=== PATIENT | female | born 1965 | race Caucasian/White ===

== ENCOUNTER 2021-12-19 17:05 | Observation (INO) | payer MEDICARE, SELFPAY ==
[2021-12-19] VITALS (10 sets, daily range): BP systolic 45–175; BP diastolic 29–100; PULSE 60–109; RESP 18–22; TEMP 36.7; O2SAT 96–100; BMI 26.4; BMI 27.0
--- NOTE | 2021-12-19 17:13 | XR_ITS ---
PROCEDURE INFORMATION: Exam: XR Chest Exam date and time: 12/19/2021 5:28 PM Age: 56 years old Clinical indication: Cough TECHNIQUE: Imaging protocol: XR of the chest. Views: 1 view. COMPARISON: No relevant prior studies available. FINDINGS: Lungs: Unremarkable. No consolidation. Pleural spaces: Unremarkable. No pleural effusion. No pneumothorax. Heart/Mediastinum: Unremarkable. No cardiomegaly. Bones/joints: A left shoulder arthroplasty is present. IMPRESSION: No acute abnormality.
--- NOTE | 2021-12-19 17:13 | CT_ITS ---
PROCEDURE INFORMATION: Exam: CT Head Without Contrast Exam date and time: 12/19/2021 5:22 PM Age: 56 years old Clinical indication: Weakness, extremity; Left TECHNIQUE: Imaging protocol: Computed tomography of the head without contrast. Radiation optimization: All CT scans at this facility use at least one of these dose optimization techniques: automated exposure control; mA and/or kV adjustment per patient size (includes targeted exams where dose is matched to clinical indication); or iterative reconstruction. COMPARISON: No relevant prior studies available. FINDINGS: Brain: There is no acute intracranial hemorrhage, mass effect, or midline shift. There is decreased attenuation within the inferior left basal ganglia. This could represent an age-indeterminate area of ischemia. Mild advanced for age cerebral and cerebellar substance loss is noted. Cerebral ventricles: No hydrocephalus. Paranasal sinuses: There is no acute sinusitis. Mastoid air cells: The mastoid air cells are clear. Orbital cavities: The orbital structures are unremarkable. Bones/joints: No acute fracture. Soft tissues: Unremarkable. IMPRESSION: Age-indeterminate ischemic changes within the inferior left basal ganglia.An MRI is recommended if there is continued clinical concern for an acute stroke.
[2021-12-19 18:05] LABS: Basophils # 0.2 K/mm3 (0-0.2); Basophils % 1.6 % (0.1-2.0); Eosinophils % 0.4 % (0.1-12.0); Hematocrit 42.4 % (37.0-47.0); Hemoglobin 14.6 g/dL (12.2-16.2); Lymphocytes # 1.6 K/mm3 (0.7-4.5); Lymphocytes % 14.5 % (10-50); Mean Corpuscular HGB Conc 34.5 g/dL (31.8-35.4); Mean Corpuscular Hemoglobin 31.9 pg (27.0-31.2); Mean Corpuscular Volume 92.4 fl (81-99); Mean Platelet Volume 8.5 fl (7.4-10.4); Monocytes # 0.6 K/mm3 (0.1-1.0); Monocytes % 5.6 % (1.7-9.3); Neutrophils # 8.8 K/mm3 (1.8-7.8); Platelet Count 253 K/mm3 (142-424); Red Blood Count 4.59 M/mm3 (4.20-5.40); Red Cell Distribution Width 13.4 % (11.5-17.5); White Blood Count 11.3 K/mm3 (4.8-10.8)
[2021-12-19 18:12] LABS: Anion Gap 14.5 mEq/L (5-15); Carbon Dioxide 21 mmol/L (22.0-30.0); Chloride 108 mmol/L (98-107); Potassium 3.5 mmoL/L (3.5-5.1); Sodium 140 mmol/L (136-145)
[2021-12-19 18:13] LABS: Alanine Aminotransferase 50 U/L (12-78); Albumin Level 4.3 g/dl (3.5-5.0); Albumin/Globulin Ratio 1.5 (1.1-1.8); Alkaline Phosphatase 144 U/L (38-126); Aspartate Amino Transferase 38 U/L (14-36); Bilirubin,Total 0.6 mg/dl (0.2-1.3); Blood Urea Nitrogen 17 mg/dl (7-17); Calcium 9.8 mg/dl (8.4-10.2); Creatinine Clearance Estimated 78 mL/min (50-200); Estimated Glomerular Filt Rate 51 ml/min (>60); GFR (African American) 62 ML/MIN (>60); Globulin 2.8 g/dL (1.3-3.2); Glucose 100 mg/dl (74-100); Total Protein,Serum 7.1 g/dl (6.3-8.2)
--- NOTE | 2021-12-19 18:18 | HMH.EDANX ---
ED Disposition Clinical Impression: Acute anxiety, Paresthesia of left arm Hypertension Qualifiers: Hypertension type: primary hypertension Qualified Code(s): I10 - Essential (primary) hypertension Disposition: Admitted As Inpatient Condition on Discharge: Fair Referrals: Lanie Buchanan APRN [Primary Care Provider] - - Critical Care Critical Care Time: No Attestation: On , the high probability of a clinically significant, sudden or life threatening deterioration of the following system(s) required my full and direct attention, intervention and personal management. The time I documented below is in addition to time spent performing reported procedures but includes the following listed in this critical care notation. Medical Decision Making - Medical Records Medical records reviewed: Yes: I reviewed the patient's medical records. - Chuy Inquiry Pt receiving controlled substance: No Vital Signs: 12/19/21 17:08 12/19/21 18:03 Temperature 98.0 F Temperature Source Oral Pulse Rate 107 H Pulse Rate [Left Radial] 101 H Respiratory Rate 20 20 Blood Pressure 45/29 L Blood Pressure [Right Arm] 145/100 H Blood Pressure Mean 32 Blood Pressure Mean [Right Arm] 115 02 Sat by Pulse Oximetry 98 99 Oxygen Delivery Method Room Air - Lab Data Lab Results 12/19/21 17:51: WBC 11.3 H, RBC 4.59, Hgb 14.6, Hct 42.4, MCV 92.4, MCH 31.9 H, MCHC 34.5, RDW 13.4, Plt Count 253, MPV 8.5, Neut % (Auto) 78.0, Lymph % (Auto) 14.5, [place] % (Auto) 5.6, Eos % (Auto) 0.4, Baso % (Auto) 1.6, Neut # (Auto) 8.8 H, Lymph # (Auto) 1.6, [place] # (Auto) 0.6, Eos # (Auto) 0.0, Baso # (Auto) 0.2 12/19/21 17:51: Sodium 140, Potassium 3.5, Chloride 108 H, Carbon Dioxide 21 L, Anion Gap 14.5, BUN 17, Creatinine 1.10 H, Estimated Creat Clear 78, Estimated GFR 51 L, Est GFR ( Amer) 62, Glucose 100, Calcium 9.8, Total Bilirubin 0.6, AST 38 H, ALT 50, Alkaline Phosphatase 144 H, Troponin I < 0.01, Total Protein 7.1, Albumin 4.3, Globulin 2.8, Albumin/Globulin Ratio 1.5 Result diagrams: 12/19/21 17:51 12/19/21 17:51 Orders (Tests/Meds): ED MEDICATIONS Generic Name Dose Route Start Last Admin Trade Name Freq PRN Reason Stop Dose Admin Sodium Chloride 1,000 mls @ 999 mls/hr 12/19/21 17:15 12/19/21 17:54 Sod Chlor 0.9% 1000ml Bag IV 12/19/21 18:15 999 mls/hr .Q1H1M DANNY Administration Sodium Chloride 10 ml 12/19/21 17:13 Sodium Chloride 0.9% 10ml Vial IV 01/18/22 17:12 NEEDED PRN to Dilute Lorazepam inj Discontinued Medications Generic Name Dose Route Start Last Admin Trade Name Freq PRN Reason Stop Dose Admin Aspirin 325 mg 12/19/21 18:54 12/19/21 19:27 Aspirin 325mg Tablet PO 12/19/21 18:55 325 mg ONCE ONE Administration Lorazepam 1 mg 12/19/21 17:13 12/19/21 17:54 Lorazepam 2mg/Ml Vial IV 12/19/21 17:14 Not Given ONCE ONE ORDERS Category Date Time Status Troponin I Q3H Lab 12/19/21 20:15 Ordered Troponin I Q3H Lab 12/19/21 23:15 Ordered - Radiology Data #1 Image(s): Chest Image Reviewed: Yes I reviewed the patient's radiology results, Yes I reviewed the patient's radiology image, Yes I have reviewed radiologist's interpretation Preliminary Findings: Normal/NAD - CT Data CT Scan: Head Time Received: 19:[address] Reviewed: Yes: I have reviewed the patient's CT results, I have viewed the radiologist's interpretation Findings Narrative: IMPRESSION: Age-indeterminate ischemic changes within the inferior left basal ganglia.An MRI is recommended if there is continued clinical concern for an acute stroke. - ECG Data Tracing #1 I reviewed this ECG and interpreted as documented below: Normal ventricular rate of 86 bpm, IA interval 164 ms, normal QTC. Sinus rhythm with occasional PVC. ECG initial impression date: 12/19/21 ECG initial impression time: 18:40 - Reevaluation(s) Time: 19:54 Reevaluation #1: On reevaluation, t
[2021-12-19 18:27] LABS: Troponin I < 0.01 ng/ml (0.00-0.034)
--- NOTE | 2021-12-19 18:40 | ECG_ITS ---
APPROVED REPORT Exam: Resting ECG HR:86 bpm ECG Measurements Heart Rate 86 AXES ME 164 P 42 QRSd 93 QRS 21 QT 373 T 25 QTc 416 Conclusion SINUS RHYTHM WITH OCCASIONAL ECTOPIC PREMATURE COMPLEXES POSSIBLE LEFT ATRIAL ENLARGEMENT [-0.1mV P-WAVE IN V1/V2] BORDERLINE ECG UNCONFIRMED REPORT Electronically signed by : Weston Luu MD 12/20/2021 21:10:20
--- NOTE | 2021-12-19 19:13 | PC.NURSE ---
Dr. Bell em for ED doctor
--- NOTE | 2021-12-19 19:36 | PC.NURSE ---
Dr Luu paged again
--- NOTE | 2021-12-19 19:50 | PC.NURSE ---
ED doctor on phone with Dr. Luu
--- NOTE | 2021-12-19 19:52 | PC.NURSE ---
patient being admitted
[2021-12-19 20:04] LABS: Coronavirus 19, PCR Not Detected (NotDetected); Influenza A, PCR Not Detected (NotDetected); Influenza B, PCR Not Detected (NotDetected)
--- NOTE | 2021-12-19 20:09 | PC.NURSE ---
Tried to call report to [facility], Nurse unavailable to take report at this time.
--- NOTE | 2021-12-19 21:13 | PC.NURSE ---
pt arrived to the floor via wheelchair at this time.
[2021-12-19 21:38] LABS: Troponin I < 0.01 ng/ml (0.00-0.034)
[2021-12-20] VITALS: BP 108/61; PULSE 70; PULSE 73; RESP 20; TEMP 36.6; O2SAT 96
[2021-12-20 00:03] LABS: Troponin I < 0.01 ng/ml (0.00-0.034)
[2021-12-20 04:00] VITALS: PULSE 80
--- NOTE | 2021-12-20 04:00 | PC.NURSE ---
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
[2021-12-20 04:52] VITALS: BP 119/67; PULSE 70; RESP 20; TEMP 36.8; O2SAT 98
[2021-12-20 06:27] LABS: Basophils # 0.1 K/mm3 (0-0.2); Basophils % 1.6 % (0.1-2.0); Eosinophils # 0.2 K/mm3 (0.0-0.4); Hematocrit 42.5 % (37.0-47.0); Hemoglobin 14.4 g/dL (12.2-16.2); Lymphocytes % 23.9 % (10-50); Mean Corpuscular HGB Conc 33.9 g/dL (31.8-35.4); Mean Corpuscular Hemoglobin 31.4 pg (27.0-31.2); Mean Corpuscular Volume 92.9 fl (81-99); Mean Platelet Volume 8.4 fl (7.4-10.4); Monocytes # 0.6 K/mm3 (0.1-1.0); Monocytes % 7.8 % (1.7-9.3); Neutrophils # 5.3 K/mm3 (1.8-7.8); Neutrophils % 64.7 % (37.0-80.0); Platelet Count 238 K/mm3 (142-424); Red Blood Count 4.58 M/mm3 (4.20-5.40); Red Cell Distribution Width 13.4 % (11.5-17.5); White Blood Count 8.2 K/mm3 (4.8-10.8)
[2021-12-20 06:38] LABS: Anion Gap 11.8 mEq/L (5-15); Blood Urea Nitrogen 15 mg/dl (7-17); Calcium 9.2 mg/dl (8.4-10.2); Carbon Dioxide 25 mmol/L (22.0-30.0); Chloride 108 mmol/L (98-107); Creatinine Clearance Estimated 87 mL/min (50-200); Estimated Glomerular Filt Rate 57 ml/min (>60); GFR (African American) 69 ML/MIN (>60); Glucose 94 mg/dl (74-100); Potassium 3.8 mmoL/L (3.5-5.1); Sodium 141 mmol/L (136-145)
--- NOTE | 2021-12-20 07:19 | HMH.PHAVTE ---
[facility] Pharmacy VTE Monitoring - Patient Demographics Admission date: 12/20/21 Report Date: 12/20/21 Time: 07:19 Allergies/Adverse Reactions: Patient Allergies cephalexin [From Keflex] Allergy (Verified 12/19/21 21:44) prochlorperazine [From Compazine] Allergy (Verified 12/19/21 21:44) latex Adverse Reaction (Verified 12/19/21 21:44) Penicillins Adverse Reaction (Verified 12/19/21 21:44) Height: 1.8 m Weight: 87.498 kg Patient Problems: Current Active Problems Acute anxiety (Acute) Hypertension (Acute) Paresthesia of left arm (Acute) - VTE Risk Labs: VTE Related Lab Results Hgb 14.4 g/dL (12.2-16.2) 12/20/21 05:57 Hct 42.5 % (37.0-47.0) 12/20/21 05:57 Plt Count 238 K/mm3 (142-424) 12/20/21 05:57 BUN 15 mg/dl (7-17) 12/20/21 05:57 Creatinine 1.00 mg/dl (0.52-1.04) 12/20/21 05:57 Estimated Creat Clear 87 mL/min (50-200) 12/20/21 05:57 Was VTE Risk Assessment Performed: Yes VTE Score: 2 VTE Risk Level: Very Low Risk Clinical Trial Participant: No - Prophylaxis VTE Prophylaxis Ordered?: Yes Types of VTE Prophylaxis: TEDS Knee High, Pharmacological Pharmacologic Type: Enoxaparin
--- NOTE | 2021-12-20 07:23 | HMH.PHAINT ---
HOME MEDICATION LIST VERIFIED USING LIST FROM OUTPATIENT PHARMACY
[2021-12-20 08:00] VITALS: BP 155/75; PULSE 120; PULSE 78; RESP 18; TEMP 36.3; O2SAT 97; O2SAT 98
--- NOTE | 2021-12-20 09:59 | MR_ITS ---
FINAL REPORT CLINICAL HISTORY: LEFT WEAKNESS, hx of tia FINDINGS: Multiplanar MR imaging of the brain was performed without contrast. There is mild age-appropriate atrophy. There is no evidence of intracranial hemorrhage or mass. No abnormal ventricular dilatation is identified. No abnormal extra-axial fluid collection is seen. No abnormality is seen on the diffusion weighted images. The posterior fossa and brainstem are unremarkable. Normal major vessel vascular flow voids are seen. IMPRESSION: Age-appropriate atrophy. No acute intracranial abnormality. Reviewed, Interpreted and Dictated by Maykel Gupta III, MD Transcribed by Dameon Conner Authenticated by Maykel Gupta III, MD on 12/20/2021 12:00:27 PM [facility]
--- NOTE | 2021-12-20 12:10 | HMH.HPDC ---
General - General Admission date:: 12/19/21 Discharge date: 12/20/21 *Admission Date: 12/19/21 *Chief complaint: Left arm paresthesias/left hemiplegia *History of present illness: 56-year-old white female with history of dysthymia, recurrent/intermittent atrial fibrillation and statin intolerance who is on Repatha for hyperlipidemia, who presented to the emergency department on 12/19/2021 with feelings of left arm paresthesia and left hemiplegia and some weakness. In the ER work-up showed slightly elevated blood pressure, and a suspicious appearing CT scan with possible semiacute/acute changes in the basal ganglia. [facility] stroke hotline was called but they did not accept the patient in transfer should she did not admit criteria for intervention or tPA. She was admitted to hospital overnight for further evaluation and MRI scanning this morning. When I entered the room this morning to make rounds the patient was extremely irritated, and stated nothing has been done for me all night. She was under the impression that she should have received tPA or some type of blood thinner. We discussed criteria for this and discussed further efforts that we could make it secondary/primary stroke prevention once MRI scan was back. Interestingly, she is not on anticoagulation therapy even though she has a strong history of paroxysmal A. fib. She follows with cardiology at [facility] in [place]. Is unable to take statins because they make me feel funny. She does take Repatha injections every other week. [facility] History I have reviewed the patient's past medical history: Yes Medical History: Reports:: Atrial Fibrillation Denies:: Cancer, Diabetes Mellitus Type 1, Diabetes Mellitus Type 2, MRSA *Have you ever received a pneumonia vaccine?: No *Have you received a flu vaccine this season?: No Other Medical History: Reports: Arthritis, Hypothyroidism Laterality Cases: Left: Arthroscopy Shoulder Other Surgeries: Yes: Appendectomy, Cholecystectomy, Amputation: No Fractures: No - *Social History Smoking Status: Never smoker Alcohol Intake: former *Occupational Status:: disabled Housing: house Household Members: spouse, children *Travel in the last 8 weeks: None Family Hx:: Cancer Review of Systems - Review of Systems Review of systems:: pertinent systems reviewed and negative unless documented below No feelings of palpitations. Reports that overnight her feelings of paresthesia and leg weakness have improved. - *Neurologic Denies headache(s) Exam Vital signs and Labs for Last 24 Hours: Temp Pulse Resp BP Pulse Ox 97.4 F L 78 18 155/75 H 97 12/20/21 08:00 12/20/21 08:00 12/20/21 08:00 12/20/21 08:00 12/20/21 08:00 Laboratory Results - last 24 hr 12/19/21 17:51: WBC 11.3 H, RBC 4.59, Hgb 14.6, Hct 42.4, MCV 92.4, MCH 31.9 H, MCHC 34.5, RDW 13.4, Plt Count 253, MPV 8.5, Neut % (Auto) 78.0, Lymph % (Auto) 14.5, [place] % (Auto) 5.6, Eos % (Auto) 0.4, Baso % (Auto) 1.6, Neut # (Auto) 8.8 H, Lymph # (Auto) 1.6, [place] # (Auto) 0.6, Eos # (Auto) 0.0, Baso # (Auto) 0.2 12/19/21 17:51: Sodium 140, Potassium 3.5, Chloride 108 H, Carbon Dioxide 21 L, Anion Gap 14.5, BUN 17, Creatinine 1.10 H, Estimated Creat Clear 78, Estimated GFR 51 L, Est GFR ( Amer) 62, Glucose 100, Calcium 9.8, Total Bilirubin 0.6, AST 38 H, ALT 50, Alkaline Phosphatase 144 H, Troponin I < 0.01, Total Protein 7.1, Albumin 4.3, Globulin 2.8, Albumin/Globulin Ratio 1.5 12/19/21 20:02: SARS-CoV-2 (PCR) Not detected, Influenza A Untype (PCR) Not detected, Influenza Type B (PCR) Not detected 12/19/21 20:56: Troponin I < 0.01 12/19/21 23:03: Troponin I < 0.01 12/20/21 05:57: WBC 8.2 D, RBC 4.58, Hgb 14.4, Hct 42.5, MCV 92.9, MCH 31.4 H, MCHC 33.9, RDW 13.4, Plt Count 238, MPV 8.4, Neut % (Auto) 64.7, Lymph % (Auto) 23.9, [place] % (Auto) 7.8, Eos % (Auto) 2.0, Baso % (Auto) 1.6, Neut # (Auto) 5.3, Lymph # (Auto) 2.0, [place] # (Auto) 0.6, Eos
--- NOTE | 2021-12-21 12:27 | CARE MANAGER ---
Contacted patient related to follow up from hospital discharge. Patient states that she is still having some chest pain but is wearing her holter monitor and the pain hasn't changed. She denies any questions or concerns.
== END 2021-12-20 13:45 | disposition home or self-care (01) ==
LOC: ER 19:55 → 2ND 20:01
PROVIDERS: Admitting Provider Internal Medicine Adolescent Medicine; Emergency Provider Emergency Medicine; PCP Nurse Practitioner; Visit Provider Internal Medicine Adolescent Medicine
DX: I48.0 Paroxysmal atrial fibrillation (principal); R20.2 Paresthesia of skin; Z20.822 Contact with and (suspected) exposure to COVID-19; Z28.310 Unvaccinated for COVID-19; E78.5 Hyperlipidemia, unspecified; Z79.899 Other long term (current) drug therapy; Z88.8 Allergy status to other drugs, medicaments and biological substances
CPT/HCPCS: G0378; 36415; 70450; 70551; 71045; 80048; 80053; 84484; 85025; 93005; 93270; 99285; C9803; U0003; U0005

== ENCOUNTER 2024-02-13 10:27 | Emergency (ER) | payer MEDICARE, SELFPAY ==
[2024-02-13] VITALS (11 sets, daily range): BP systolic 99–141; BP diastolic 55–90; PULSE 60–82; RESP 7–18; TEMP 36.4–36.8; O2SAT 95–98; BMI 28.5
--- NOTE | 2024-02-13 10:26 | ECG_ITS ---
APPROVED REPORT Exam: Resting ECG HR:74 bpm ECG Measurements Heart Rate 74 AXES ID 161 P 51 QRSd 87 QRS 27 QT 354 T 23 QTc 381 Conclusion SINUS RHYTHM WITH OCCASIONAL VENTRICULAR PREMATURE COMPLEXES BORDERLINE ECG UNCONFIRMED REPORT Electronically signed by : James Velazquez, 02/13/2024 15:48:33
--- NOTE | 2024-02-13 11:04 | XR_ITS ---
FINAL REPORT CLINICAL HISTORY: dyspnea COMPARISON: 12/19/2021 FINDINGS: SINGLE-VIEW CHEST The heart size is normal. The mediastinum is normal. The lungs are clear. There is no pneumothorax. The patient is status post left shoulder arthroplasty. IMPRESSION: No acute cardiopulmonary process. Reviewed, Interpreted and Dictated by Maykel Gupta III, MD Transcribed by Love Parks Authenticated and [facility]
--- NOTE | 2024-02-13 11:06 | ED_ITS ---
Discharge Plan Disposition Patient Disposition: Home, Self-Care Prescriptions Prescriptions: No Action tizanidine 4 MG tablet 4 mg PO HS PRN (Reason: restless leg syndrome) levothyroxine 88 MCG tablet 88 mcg PO DIRECTED Rx Instructions: take 1 tab (88mcg) at bedtime, take 2 tabs (176mcg) on Mondays at bedtime lorazepam 0.5 MG tablet 1 - 2 mg PO HS aspirin 81 MG tablet,chewable 81 mg PO DAILY folic acid 1 MG tablet 1 mg PO HS evolocumab 420 MG/3.5 ML wearable injector 1 dose SQ MONTHLY lisinopril 5 MG tablet 5 mg PO DAILY Qty: 30 0RF Referrals Follow up/Referrals: Provider,Referral, MD [Referring] - See instructions Activity Restrictions/Add. Instructions Additional Instructions/Restrictions: No acute cardiopulmonary emergency identified please follow-up with your french instructor next available appointment to discuss further downstream noninvasive cardiac imaging and/or stress test/heart cath. Return with any significant worsening of your symptoms. Clinical Impressions Clinical Impression: Chest pain, Acute dyspnea Discharge ED Provider: Kalina Velazquez General Adult HPI General Chief complaint: Chest Pain Stated complaint: chest pain Time Seen by Provider: 02/13/24 10:57 Mode of Arrival: Ambulatory Source of Information: Patient Limitations: No Limitations Description of Symptoms (Recalled from ER Triage Doc. by RN): Patient reports chest pain and SOB that started approx 3 days ago. Reports radiation down left arm and up to left jaw. States she spoke with her french instructor at [facility] who referred her to the emergency room. History of Present Illness HPI narrative: Patient is a 59-year-old presenting today with chest pain and dyspnea. This started 3 days ago she states has been intermittent. She states its located substernal with some radiation and diaphoresis associated with it. She spoke with her french instructor who is at [facility] who sent her to the emergency department for further evaluation. She states she is currently without any symptoms most recent episode lasted about 30 minutes. She denies any underlying coronary artery disease. She has had a stress test in the past which was unremarkable. She has not had a left heart cath. She does have a known history of atrial fibrillation she is on Eliquis for this and has been compliant with those medications. No diagnosed of pulmonary pathology in the past. No recent lower extremity swelling hemoptysis history of DVT PE etc. Related Data Home Medications Medication Instructions Recorded Confirmed aspirin 81 mg chewable tablet 81 mg PO DAILY heart health 12/19/21 12/19/21 evolocumab 420 mg/3.5 mL 1 dose SQ MONTHLY Cholesterol 12/19/21 12/19/21 subcutaneous wearable injector folic acid 1 mg tablet 1 mg PO HS Supplement 12/19/21 12/19/21 levothyroxine 88 mcg tablet 88 mcg PO DIRECTED 12/19/21 12/20/21 hypothyroidism lorazepam 0.5 mg tablet 1 - 2 mg PO HS sleep 12/19/21 12/19/21 tizanidine 4 mg tablet 4 mg PO HS PRN restless leg 12/19/21 12/19/21 syndrome Previous Rx's Medication Instructions Recorded lisinopril 5 mg tablet 5 mg PO DAILY #30 tabs 12/20/21 Allergies Allergy/AdvReac Type Severity Reaction Status Date / Time cephalexin [From Keflex] Allergy Verified 12/19/21 21:44 coffee (Coffea arabica) Allergy Verified 12/20/21 07:46 prochlorperazine Allergy Verified 12/19/21 21:44 [From Compazine] latex AdvReac Verified 12/19/21 21:44 Penicillins AdvReac Verified 12/19/21 21:44 ALL FRUIT Allergy Uncoded 12/20/21 07:49 [facility] Disclaimer: The information contained in this section may have been updated after the patient was seen, as this information can be updated by other users. Social History Smoking Status: Unknown if ever smoked alcohol intake: former current occupational status: disabled Travel in the last 8 weeks: None household members: spouse and children housing: house ROS Obtained: Yes All systems reviewed & no additional complaints except as documented Physical Exam General General appearance: alert and in no apparent distress Respiratory Respiratory exam: Present normal lung sounds bilaterally and respiratory distress Cardiovascular Cardiovascular exam: Present regular rate and normal rhythm Neurological Exam Neurological exam: Present alert and oriented X3 Medical Decision Making Chuy Inquiry Pt receiving controlled substance: No Vital Signs: 02/13/24 10:27 02/13/24 10:31 02/13/24 11:01 Temperature 97.6 F Temperature Source Oral Pulse Rate 79 74 Pulse Rate [Radial] 82 Respiratory Rate 17 16 15 Blood Pressure 121/90 Blood Pressure [Right Arm] 141/86 H Blood Pressure Mean [Right Arm] 104 Blood Pressure Source [Right Arm] Automatic Cuff Blood Pressure Position [Right Arm] Sitting 02 Sat by Pulse Oximetry 98 98 98 Oxygen Delivery Method Room Air Room Air 02/13/24 11:30 02/13/24 12:01 02/13/24 12:31 Temperature Temperature Source Pulse Rate 73 71 78 Pulse Rate [Radial] Respiratory Rate 16 7 L 7 L Blood Pressure 125/81 111/55 L 99/55 L Blood Pressure [Right Arm] Blood Pressure Mean [Right Arm] Blood Pressure Source [Right Arm] Blood Pressure Position [Right Arm] 02 Sat by Pulse Oximetry 97 96 96 Oxygen Delivery Method Room Air Room Air Room Air 02/13/24 13:00 02/13/24 13:30 02/13/24 14:00 Temperature Temperature Source Pulse Rate 69 64 Pulse Rate [Radial] Respiratory Rate 8 L 13 11 L Blood Pressure 119/79 117/80 103/77 L Blood Pressure [Right Arm] Blood Pressure Mean [Right Arm] Blood Pressure Source [Right Arm] Blood Pressure Position [Right Arm] 02 Sat by Pulse Oximetry 96 97 98 Oxygen Delivery Method Room Air Room Air Room Air 02/13/24 14:30 Temperature Temperature Source Pulse Rate 62 Pulse Rate [Radial] Respiratory Rate 12 Blood Pressure 114/73 Blood Pressure [Right Arm] Blood Pressure Mean [Right Arm] Blood Pressure Source [Right Arm] Blood Pressure Position [Right Arm] 02 Sat by Pulse Oximetry 95 Oxygen Delivery Method Lab Data Lab results reviewed: Yes I reviewed the patient's lab results. Lab Results 02/13/24 10:35: WBC 7.8, RBC 4.77, Hgb 15.2, Hct 44.1, MCV 92.6, MCH 31.8 H, MCHC 34.3, RDW 13.6, Plt Count 250, MPV 8.6, Neut % (Auto) 64.2, Lymph % (Auto) 25.4, [place] % (Auto) 7.7, Eos % (Auto) 2.0, Baso % (Auto) 0.7, Neut # (Auto) 5.0, Lymph # (Auto) 2.0, [place] # (Auto) 0.6, Eos # (Auto) 0.2, Baso # (Auto) 0.1, D- Dimer 0.50, Sodium 138, Potassium 3.9, Chloride 105, Carbon Dioxide 23, Anion Gap 13.9, BUN 14, Creatinine 1.10 H, Estimated Creat Clear 78, Estimated GFR 51 L, Est GFR ( Amer) 62, Glucose 92, Calcium 9.7, Total Bilirubin 0.6, AST 57 H, ALT 55, Alkaline Phosphatase 138 H, Troponin I < 0.01, NT-Pro-B Natriuret Pep 55.0, Total Protein 7.8, Albumin 4.6, Globulin 3.2, Albumin/Globulin Ratio 1.4 02/13/24 13:10: Troponin I < 0.01 02/13/24 10:35 02/13/24 10:35 Orders (Tests/Meds): ED MEDICATIONS Discontinued Medications Generic Name Dose Route Start Last Admin Trade Name Freq PRN Reason Stop Dose Admin Aspirin 324 mg 02/13/24 11:04 02/13/24 11:12 Aspirin 81mg Chewable Tablet PO 02/13/24 11:05 324 mg ONCE ONE Administration ORDERS Category Date Time Status CXR --portable [XR chest portable] Stat Exams 02/13/24 11:04 Taken BNP [NT Pro Brain Natriuretic Pep.] Stat Lab 02/13/24 10:35 Completed CBC w/Auto Diff [Complete Blood Count Auto Diff] Stat Lab 02/13/24 10:35 Completed CMP [Comprehensive Metabolic Panel] Stat Lab 02/13/24 10:35 Completed D-Dimer Stat Lab 02/13/24 10:35 Completed Trop I [Troponin I] Stat Lab 02/13/24 10:35 Completed Troponin I Q3H Lab 02/13/24 13:10 Completed Troponin I Q3H Lab 02/13/24 17:15 Ordered ECG Data Tracing #1: I reviewed this ECG and interpreted as documented below: Ventricular rate of 74 no acute ischemic changes noted there is a normal axis this is sinus rhythm no significant conduction abnormalities there is a single PVC HEART Score History (anamnesis): Moderately suspicious ECG: Normal Age: 45-65 years Risk factors: 1-2 risk factors Medical Decision Narrative: 59-year-old female presents today with intermittent chest pain and shortness of breath. She is very well-appearing on my initial assessment EKG is nonischemic. Will get blood work including serial troponins D-dimer to rule out PE I will utilize years criteria of 1.[address] PE. Other pathology would include pneumonia COPD pulmonary embolism CHF etc. Reassessment but after initial workup is complete. Reassessment 248 patient remains very stable serial troponins are negative chest x-ray performed to person interpreted patient was observed for several hours without any evidence of cardiopulmonary emergency. D-dimer beneath CT PE threshold. Not consistent with pulmonary embolism. Serial EKGs were performed without any progressive ischemia. She has close follow-up with her french instructor she was offered close follow-up with our french instructor declined. She was discharged in improved and stable condition. Critical Care Critical Care Time Critical Care Time: No
[2024-02-13] MEDS: ASPIRIN 81MG CHEWABLE TABLET 324 MG PO (11:12)
[2024-02-13 11:23] LABS: Alanine Aminotransferase 55 U/L (12-78); Albumin Level 4.6 g/dl (3.5-5.0); Albumin/Globulin Ratio 1.4 (1.1-1.8); Alkaline Phosphatase 138 U/L (38-126); Anion Gap 13.9 mEq/L (5-15); Aspartate Amino Transferase 57 U/L (14-36); Basophils # 0.1 K/mm3 (0-0.2); Basophils % 0.7 % (0.1-2.0); Bilirubin,Total 0.6 mg/dl (0.2-1.3); Blood Urea Nitrogen 14 mg/dl (7-17); Calcium 9.7 mg/dl (8.4-10.2); Carbon Dioxide 23 mmol/L (22.0-30.0); Chloride 105 mmol/L (98-107); Creatinine Clearance Estimated 78 mL/min (50-200); Eosinophils # 0.2 K/mm3 (0.0-0.4); Estimated Glomerular Filt Rate 51 ml/min (>60); GFR (African American) 62 ML/MIN (>60); Globulin 3.2 g/dL (1.3-3.2); Glucose 92 mg/dl (74-100); Hematocrit 44.1 % (37.0-47.0); Hemoglobin 15.2 g/dL (12.2-16.2); Lymphocytes % 25.4 % (10-50); Mean Corpuscular HGB Conc 34.3 g/dL (31.8-35.4); Mean Corpuscular Hemoglobin 31.8 pg (27.0-31.2); Mean Corpuscular Volume 92.6 fl (81-99); Mean Platelet Volume 8.6 fl (7.4-10.4); Monocytes # 0.6 K/mm3 (0.1-1.0); Monocytes % 7.7 % (1.7-9.3); Neutrophils % 64.2 % (37.0-80.0); Platelet Count 250 K/mm3 (142-424); Potassium 3.9 mmoL/L (3.5-5.1); Red Blood Count 4.77 M/mm3 (4.20-5.40); Red Cell Distribution Width 13.6 % (11.5-17.5); Sodium 138 mmol/L (136-145); Total Protein,Serum 7.8 g/dl (6.3-8.2); White Blood Count 7.8 K/mm3 (4.8-10.8)
[2024-02-13 11:43] LABS: Troponin I < 0.01 ng/ml (0.00-0.034)
--- NOTE | 2024-02-13 12:08 | PC.NURSE ---
Rounded on pt. Pt complains of chest pain on and off Dr. Velazquez made aware.
--- NOTE | 2024-02-13 13:07 | ECG_ITS ---
APPROVED REPORT Exam: Resting ECG HR:61 bpm ECG Measurements Heart Rate 61 AXES ID 164 P 63 QRSd 87 QRS 45 QT 410 T 38 QTc 414 Conclusion SINUS RHYTHM WITH OCCASIONAL VENTRICULAR PREMATURE COMPLEXES BORDERLINE ECG UNCONFIRMED REPORT Electronically signed by : James Velazquez, 02/13/2024 15:49:00
--- NOTE | 2024-02-13 13:11 | PC.NURSE ---
Repeat EKG performed and second trop sent to lab. No other needs voiced. Call light remains within reach.
[2024-02-13 13:48] LABS: Troponin I < 0.01 ng/ml (0.00-0.034)
== END 2024-02-13 14:54 | disposition home or self-care (01) ==
PROVIDERS: Emergency Provider Student in an Organized Health Care Education/Training Program; PCP Family Medicine
DX: R07.9 Chest pain, unspecified (principal); R06.02 Shortness of breath; I49.3 Ventricular premature depolarization; I48.0 Paroxysmal atrial fibrillation; Z79.01 Long term (current) use of anticoagulants
CPT/HCPCS: 71045; 80053; 83880; 84484; 85025; 85378; 93005; 99284